=== PATIENT | female | born 2000 | race Caucasian/White ===

== ENCOUNTER 2021-05-29 07:31 | Outpatient (CLI) | payer BC | END 2021-05-29 07:32 | disposition home or self-care (01) | LOC: ULT 07:31 | PROVIDERS: ATTEND Advanced Practice Midwife | DX: R10.11 Right upper quadrant pain (principal); N13.30 Unspecified hydronephrosis | CPT/HCPCS: 76705 ==

== ENCOUNTER 2021-06-04 14:57 | Outpatient (CLI) | payer BC | END 2021-06-04 14:58 | disposition home or self-care (01) | LOC: ULT 14:57 | PROVIDERS: ATTEND Advanced Practice Midwife | DX: N23 Unspecified renal colic (principal); N13.30 Unspecified hydronephrosis | CPT/HCPCS: 76770 ==